=== PATIENT | male | born 1955 | race Caucasian/White ===

== ENCOUNTER → 2016-10-04 | Outpatient (CLI) | payer BC ==
[~2016-10-04] MED LIST: ASPIRIN (CHILDR81 MG PO; BRILINTA90 MG PO; JANUMET XR 50-1 EACH PO; MICRONASE5 MG PO; PRAVACHOL80 MG PO; VASOTEC2.5 MG PO
--- NOTE | ~2016-10-04 | ESTC ---
Cardiac Perfusion Imaging Demographics Patient Name NI Carrillo Gender Male Patient Number [id number] Race Visit Number [id number] Ethnicity Corporate ID Room Number Accession Number [id number] Height 68 inches Date of 1955 Weight 183 pounds Interpreting Arleth Dunne MD Date of study 10/04/2016 Physician Supervising /MAJO CABRERA Technologist Gabbie Gonzalez APRN Ordering Physician Arleth Dunne MD Stress Rotrip [place] watch repair technician RDCS, RVT Stress ECG Reading Eric Mejia Nurse Amor Hoyos RN Physician MACIEL Medications Reviewed with Patient prior to Procedure. Procedure Procedure Type: Nuclear Stress Test:Exercise, Cardiolite Stress Test Procedure Start time: 10/04/2016 08:00 Indications: Chest pain. Risk Factors The patient risk factors include:treated hypercholesterolemia, treated hypertension, family history of premature CAD, orally-treated diabetes mellitus and dyslipidemia. Conclusions Summary Cardiolite SPECT images demonstrate an area of mild to moderate reversible defect involving the basal lateral wall of mild to moderate severity. No evidence of underlying fixed defect. TID is mildly increased at 1.13 Gated images demonstrate preserved left ventricular systolic function without inducible wall motion abnormalities. LVEF is 51% Stress Protocols Resting ECG Normal sinus rhythm. Pre-stress physical exam: Patient assessed by Francisco ST prior to testing. Chest - CTA Cardio - RRR, S1, S2 Peak HR:151 bpm HR response: Appropriate Peak BP:196/88 mmHg BP response: Appropriate Predicted HR: 160 bpm HR/BP product:62582 % of predicted HR: 94 Reason for termination:Target heart rate ECG Findings 1.6 - 1.8mm of depression in leads II, III, aVF, V5, V6. Arrhythmias Rare PVC's at peak exercise. Symptoms Shortness of breath. Complications Procedure complication: None. Stress Interpretation Patient walked for 8 minutes through 3 stages of CARMEN protocol. Appropriate hemodynamic response to exercise. Significant ST-T wave changes with exercise. EKG portion is positive for ischemia by diagnostic criteria. The Newton Treadmill score was -1 .This corresponds to a moderate risk stress test. Will correlate with nuclear images. Imaging Results Summed scores - Summed stress score: 6 - Summed rest score: 10 - Summed difference score: -4 Stress ejection Ejection fraction:51 % EDV :134 ml ESV :66 ml Stroke volume :68 ml LV mass :156 gr Imaging Protocols Rest Stress Isotope:Tc99m Sestamibi IV Isotope: Tc99m Sestamibi IV Isotope dose:12.7 mCi Isotope dose:38.9 mCi Date:10/04/2016 06:56 Date:10/04/2016 08:46 Technique: SPECT Technique: Gated Supine SPECT Supine Scan Time:45-60 minutes post Scan Time:15-30 minutes post injection injection Medical History Admission Data Admission date: 10/04/2016 Admission Time: 06:18 Hospital Status: Outpatient. Signatures dtt: Uzair Reinoso (cardio) dtd: 10/04/16 0800 Physician Self Edit
== END | disposition disaster alternative care site (69) ==
LOC: GRAD 06:18
DX: R07.9 Chest pain, unspecified (principal); E78.00 Pure hypercholesterolemia, unspecified; I10 Essential (primary) hypertension; E11.9 Type 2 diabetes mellitus without complications; E78.5 Hyperlipidemia, unspecified; Z86.79 Personal history of other diseases of the circulatory system
CPT/HCPCS: A9500

== ENCOUNTER 2016-10-27 05:25 | Outpatient (CLI) | payer BC ==
[~2016-10-27] VITALS: Ht 172.7 cm; Wt 79.1 kg
--- NOTE | ~2016-10-27 | CATH ---
Cardiac Diagnostic + PCI Report Demographics Patient Name NI Carrillo Gender Male Date of 1955 Age 61 year(s) Patient Number [id number] Date of Study 10/27/2016 Visit Number [id number] Room Number [id number] [place] [id number] Ht 172.7 cm Wt 79.1 kg Referring [facility] Primary Physician Physician Flora Miranda MD Performing Arleth Dunne MD Secondary Physician Physician Diagnostic Arleth Dunne MD Assisting Physician Physician Interventional Arleth Dunne MD Physician Organ Recovery Coordinator Physician Findings and Conclusions Diagnostic Findings and Conclusion 1 vessel CAD Diagnostic Recommendations PCI LAD Interventional Findings and Conclusion 0.014 prowater 2.25x20 Emerge balloon 3.25X18 Alpine to 3.44 Interventional Recommendations DAPT x 1 yr Routine post angioseal precautions Risk factor modification Procedure Description The patient was brought to the diagnostic cardiac catheterization-EP laboratory in the fasting, non-sedated state. Informed consent was obtained in the written and verbal form after the risks and benefits were explained. The patient had no further questions and agreed to proceed. The planned puncture-incision site(s) were shaved and prepped with ChloraPrep and draped in the usual sterile manner. Conscious sedation, supplemental oxygen, and pain control medications were delivered by a registered nurse under physician guidance. Surface ECG rhythm, blood pressure measurement, and pulse oximetry were monitored throughout the procedure. Arterial access. The access site was infiltrated with lidocaine. The vessel was entered with the Seldinger technique. A sheath was advanced into the vessel and used for catheter placement. Selective left coronary angiography. A catheter was advanced into the left coronary vessel ostium under Fluoroscopic guidance. Contrast was injected by hand. Images were obtained in multiple projections. Selective right coronary angiography. A catheter was advanced into the right coronary vessel ostium under fluoroscopic guidance. Contrast was injected by hand. Images were obtained in multiple projections. Stent Placement: A guiding catheter was used to intubate the vessel. A 0.14 wire was used to cross the lesion. A Drug Eluting Stent was placed. Post placement angiograms were performed. Left heart catheterization. A catheter was advanced across the aortic valve to the left ventricle under fluoroscopic guidance. Resting hemodynamics were obtained. Arterial artery hemostasis was achieved. The patient was transferred to a regular nursing floor via cart accompanied by a nurse. The patient left the laboratory in stable condition. Diagnostic Cath Status: Elective Interventional Cath Status: Urgent Procedure Procedure Type Diagnostic procedure:Angiography:, Coronary Angios /[facility] PCI procedure:Drug Eluting Coronary Stent:, LAD Indications: Abnormal cardiolyte and Chest pain. The procedure was explained in detail to the patient. Risks, complications and alternative treatments were reviewed. Written consent was obtained. Medications Reviewed with Patient prior to Procedure. Angiographic Findings Dominance: Right Cardiac Arteries and Lesion Findings LMCA: Normal (0% Stenosis).large wnl LAD: Abnormal.large, mid-distal 75-80, otherwise wnl Diag 1 small ok Lesion on Mid LAD: Mid subsection.80% stenosis 18 mm length reduced to 0%. Pre procedure MIKAL III flow was noted. Post Procedure MIKAL III flow was present. The guidewire cross was successful.A good run off was present.The lesion was diagnosed as a moderate risk lesion.Culprit lesion. Treatment results:Interventional treatment was successful. Devices used - Centice Wire .014 x 180. Number of passes: 1. - Emerge Balloon 2.25 x 20. 1 inflation(s) to a max pressure of: 10 rand. - Alpine Stent 3.25 x 18. 2 inflation(s) to a max pressure of: 15 rand. LCx: Normal (0% Stenosis).large CO-dominant wnl OM 1,2,3 medium wnl RCA: Abnormal.large, prox plaque PL medium ok PDA medium ok Coronary Tree Procedure Data Procedure Date Date: 10/27/2016Start: 08:06 AMEnd: 08:39 AM Entry Locations - Retrograde Percutaneous access was performed through the Right Femoral artery (Primary location). A 6 Fr sheath was inserted. Hemostasis was successfully obtained using Angio-Seal STS PLUS ([place]). Closure Comments: deployed by vamshi manual pressure held for 15 minutes for slight oozing. Procedure Medications Order and Administration + + + + + !Time !Medication !Dosage !Route ! + + + + + !10/27/2016 08:03 !Fentanyl !50 mcg !I.V. ! !AM ! ! ! ! + + + + + !10/27/2016 08:06 !Versed !1 mg !I.V. ! !AM ! ! ! ! + + + + + !10/27/2016 08:08 !Oxygen !2 l/min !NC ! !AM ! ! ! ! + + + + + !10/27/2016 08:19 !Angiomax (Bivalirudin) !60 mg !I.V. bolus ! !AM !(ACC_5) ! ! ! + + + + + !10/27/2016 08:21 !Angiomax (Bivalirudin) !1.75 mg/kg/hr!I.V. drip ! !AM !(ACC_5) ! ! ! + + + + + !10/27/2016 08:34 !Brilinta (Ticagrelor) !180 mg !P.O. ! !AM !(ACC_20) ! ! ! + + + + + !10/27/2016 08:35 !Angiomax (Bivalirudin) ! !I.V. drip ! !AM !(ACC_5) ! ! ! + + + + + Devices Used - A6 Fr. BS JL 4 Diag. Catheterwas used for:Left coronary angiography. - A6 Fr. BS JR 4 Diag. Catheterwas used for:Right coronary angiography. - A6 Fr. BS Angled Pigtail Diag. Catheterwas used for:LV Pressures. - A6 Fr. XB 3.5 Guide Catheterwas used for:LAD Intervention. Contrast Material - Isovue [id number] ml Fluoroscopy Time: Diagnostic: 7:30 minutes. Total: 7:30 minutes. Fluoroscopy Dose: Diagnostic: 1364 mGy. Total: 1364 mGy. Estimated Blood Loss: 5 ml. Additional [facility] PCI Information PCI Indication:PCI for high risk Non-STEMI or unstable angina. Medical History Allergies - No known allergies. Risk Factors The patient risk factors include:physical activity, treated hypercholesterolemia, treated hypertension, family history of premature CAD, orally-treated diabetes mellitus, last creatinine: 0.8 mg/dl, creatinine clearance: 109.86 ml/min and dyslipidemia. Admission Data Admission Date: 10/27/2016 Admission Time: 05:25 AM Admit Source: Other Insurance Payors: Private health insurance. Admission Medications + +------+-------+ + + + + !Medication!Dosage!Times !Last !Last !Administered !Comments ! ! ! !Per Day!Delivery !Delivery ! ! ! ! ! ! !Date !Time ! ! ! + +------+-------+ + + + + !Aspirin ! ! ! ! ! ! ! !(any) ! ! ! ! ! ! ! + +------+-------+ + + + + !Statin ! ! ! ! ! ! ! !(any) ! ! ! ! ! ! ! + +------+-------+ + + + + Clinical Evaluation Leading to Procedure - The patient's CAD presentation was assessed as: Unstable angina. - The patient's anginal syndrome during the past two weeks was assessed as: Class IV according to the [place] Cardiovascular Society Classification System (CCS). [facility] Ventriculography Findings EF 51% stress test positive- basal lat wall defect Hemodynamics Condition: Rest O2 Consumption: Estimated: 221.15Heart Rate: 62 bpm Pressures (mmHg) +-----+ + !Site !Pressure ! +-----+ + !AO !132/66 (91) ! +-----+ + !LV !123/1 ,11 ! +-----+ + !LV !124/1 ,10 ! +-----+ + !AO !123/62 (88) ! +-----+ + !LV !125/1 ,13 ! +-----+ + Valve Gradients and Areas + +---------+---------+---------+ +---------+ + !Valve !Peak !Mean !Area !Index !Flow !Source ! + +---------+---------+---------+ +---------+ + !Aortic !1 !0 ! ! ! ! ! + +---------+---------+---------+ +---------+ + !Aortic !1 !0 ! ! ! ! ! + +---------+---------+---------+ +---------+ + Shunts Oxygen Values O2 Capacity 179.52 O2 Consumption 221.15 Discharge Data Discharge Date: 10/28/2016 Hospital Status: Outpatient Signatures dtt: Uzair Reinoso (cardio) dtd: 10/27/16 0806 Physician Self Edit
[~2016-10-27 05:25] MED LIST changes: -BRILINTA90 MG PO; -VASOTEC2.5 MG PO
--- NOTE | 2016-10-27 16:36 | NUR ---
Significant Event: TO PCU @ 1130 FROM PACU, POST HEART CATH THIS AM. STENT TO LAD. RIGHT GROIN APPROACH, GAUZE & TRANSPARENT DRESSING, C/D/I. SITE SOFT, SLIGHTLY TENDER. LEFT HAND IV WITH NS 100 ML/HR FOR 1 LITER. VSS. DENIES PAIN. UP IN CHAIR NOW. Follow up: PLAN TO DISCHARGE TOMORROW.
[2016-10-28 04:01] LABS: BASOPHIL % 0.3 %; EOSINOPHIL # 0.1 K/uL (0.0-0.5); HEMATOCRIT 38.7 % (37.0-53.0); HEMOGLOBIN 12.6 g/dL (11.0-16.0); IMMATURE GRANULOCYTE % 0.4 %; LYMPHOCYTE # 1.6 K/uL (0.8-4.0); LYMPHOCYTE % 14.7 %; MCH 29.7 pg (27.0-34.0); MCHC 32.6 gm/dL (32.0-36.5); MCV 91.3 fl (83.0-98.0); MONOCYTE # 0.9 K/uL (0.0-1.0); MONOCYTE % 8.4 %; MPV 10.7 fl (9.4-12.4); NEUTROPHIL # (ANC) 8.2 K/uL (1.4-9.0); NEUTROPHIL % 75.2 %; NRBC % 0 /100WBC (0-0.00); PLATELET COUNT 179 K/uL (150-450); RBC 4.24 M/uL (3.50-5.50); RDW-CV 12.5 % (11.9-14.6); WBC 10.9 K/uL (4.0-11.0)
[2016-10-28 04:23] LABS: ALBUMIN 3.3 gm/dL (3.5-5.0); ALK PHOS 66 IU/L (33-138); ALT 28 IU/L (12-78); ANION GAP 9.8 (10.0-19.0); AST 19 IU/L (10-40); BLOOD UREA NITROGEN 13 mg/dL (6-24); CHLORIDE 110 mMol/L (96-110); CO2 28 mMol/L (22-32); CREATININE 0.7 mg/dL (0.6-1.3); ESTIMATED GFR (MDRD EQUATION) > 60; POTASSIUM 3.8 mMol/L (3.7-5.1); SODIUM 144 mMol/L (135-145); TOTAL BILIRUBIN 0.6 mg/dL (0.0-1.5); TOTAL PROTEIN 6.2 g/dL (6.0-8.4)
--- NOTE | 2016-10-28 07:04 | NUR ---
Significant Event: DENIES PAIN ALL NIGHT. UP JOCELINE TO BR. STEADY GAIT. GROIN REMAINS SOFT. NO DRAINAGE. Follow up:
[2016-10-28] MEDS ORDERED: VASOTEC2.5 MG PO (09:36)
[2016-10-28] MEDS ORDERED: BRILINTA90 MG PO (09:37)
--- NOTE | 2016-10-28 16:38 | NUR ---
DISCHARGE: A/O X3. UP AD JOCELINE. PIV DC'D TO RIGHT HAND. RIGHT GROIN SITE WNL, BANDAID IN PLACE. DENIES PAIN. DISCHARGE INSTRUCTIONS GIVEN. GROIN SITE CARE REVIEWED. NEW MEDS AND MED CHANGES DISCUSSED. F/U APPOINTMENTS DISCUSSED. PNEUMO VACCINE TO RIGHT DELTOID. PRESENT AT TIME OF INSTRUCTIONS AND DISCHARGE. TAKEN TO [facility] BY RN @ 2735 FOR DISCHARGE.
== END 2016-10-28 11:45 | disposition disaster alternative care site (69) ==
LOC: GPCU 05:25 → GCAT 05:25 → GPOC 06:00 → GPCU 10:47 → GCAT 10-28 11:45
PROVIDERS: Internal Medicine Interventional Cardiology
DX: I25.10 Atherosclerotic heart disease of native coronary artery without angina pectoris (principal); E78.5 Hyperlipidemia, unspecified; E11.9 Type 2 diabetes mellitus without complications; Z79.84 Long term (current) use of oral hypoglycemic drugs; Z23 Encounter for immunization
CPT/HCPCS: C1725; C1760; C1769; C1874; C1887; C9600; G0009; J0461; J0583; J1644; J2001; J2250; J3010; J7030; J7060